=== PATIENT | male | born 2000 | race Caucasian/White ===

== ENCOUNTER 2023-01-25 18:24 | Emergency (ER) | payer BC ==
[~2023-01-25] VITALS: Ht 177.8 cm; Wt 86.3 kg
[2023-01-25 18:43] VITALS: BP 150/93
== END 2023-01-25 21:41 | disposition left against medical advice (07) ==
LOC: ER 18:26
DX: H92.02 Otalgia, left ear (principal); Z53.21 Procedure and treatment not carried out due to patient leaving prior to being seen by health care provider
CPT/HCPCS: 99281